=== PATIENT | male | born 1960 | race American Indian/Alaskan Native ===

== ENCOUNTER 2019-08-11 17:11 | Emergency (ER) | payer OTHER, MEDICAID ==
--- NOTE | 2019-08-11 20:18 | XRay Report ---
LEFT SHOULDER 3 VIEWS INDICATION / CLINICAL INFORMATION: LEFT SHOULDER PAIN COMPARISON: None available. FINDINGS: BONES / JOINT(S): No acute fracture or subluxation. No significant arthritis. SOFT TISSUES: No significant abnormality. ADDITIONAL FINDINGS: None. Signer Name: Herman Olivas MD Signed: 08/11/2019 8:14 PM Workstation Name: [id number]
--- NOTE | 2019-08-11 20:20 | XRay Report ---
Chest with left RIBS 4 views. HISTORY: Upper left chest pain. FINDINGS: Heart size is normal. The lungs are clear. Negative for pleural fluid, pneumothorax or alli a. No bony injury. Signer Name: Herman Olivas MD Signed: 08/11/2019 8:16 PM Workstation Name: [id number]
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
[2019-08-11 20:47] VITALS: BP 129/91
== END 2019-08-11 20:50 | disposition home or self-care (01) ==
LOC: ED 17:11
DX: S39.012A Strain of muscle, fascia and tendon of lower back, initial encounter (principal); S46.812A Strain of other muscles, fascia and tendons at shoulder and upper arm level, left arm, initial encounter; R07.89 Other chest pain; F17.200 Nicotine dependence, unspecified, uncomplicated; V87.7XXA Person injured in collision between other specified motor vehicles (traffic), initial encounter; Y93.89 Activity, other specified; Y92.89 Other specified places as the place of occurrence of the external cause; Y99.8 Other external cause status
CPT/HCPCS: 99283

== ENCOUNTER 2020-11-30 19:43 | Emergency (ER) | payer MEDICAID ==
[2020-11-30] MEDS ORDERED: ACETAMINOPHEN 325 MG TAB PO ONE (20:34)
[2020-11-30 20:36] VITALS: BP 112/65
--- NOTE | 2020-11-30 20:36 | Emergency Department Report ---
ED Fall HPI - General Chief Complaint: Pain General Stated Complaint: FALL/BACK/LEFT SIDE PAIN Time Seen by Provider: 11/30/20 20:21 Source: patient Mode of arrival: Ambulatory - History of Present Illness Initial Comments: 60-year-old male presents to the ER today with complaints of left flank pain after falling off a ladder 2 days ago. Patient states that the top of a 12 foot ladder. He states that the leg of the ladder slipped causing him in the long to fall. He states that he landed in bushes on his left side. He denies any head injury. He reports pain mainly to his left flank area. He reports that pain is worse with movement and on palpation. He reports no apparent bruising, swelling or open wounds. He denies any neck pain. He denies any hematuria. He denies any lumbar or thoracic back pain. He denies any bowel or bladder incontinence, lower extremity weakness, numbness, tingling, saddle anesthesia or any other symptoms at this time. Complaint: fall, other (Left flank pain) -: days(s) (1) Fall From: from height (distance) (Patient states that he was about 12 feet up on a ladder) - Related Data Previous Rx's Medication Instructions Recorded Last Taken Type Naproxen [EC-Naproxen] 500 mg PO BID PRN #14 tablet. 08/11/19 Unknown Rx methOCARBAMOL [Robaxin TAB] 500 mg PO QHS PRN #10 tab 08/11/19 Unknown Rx Allergies Allergy/AdvReac Type Severity Reaction Status Date / Time No Known Allergies Allergy Verified 08/11/19 17:12 ED Review of Systems ROS: Stated complaint: FALL/BACK/LEFT SIDE PAIN Other details as noted in HPI Comment: All other systems reviewed and negative Constitutional: denies: chills, diaphoresis, fever, malaise, weakness Eyes: denies: eye pain, eye discharge, vision change ENT: denies: ear pain, throat pain Respiratory: denies: cough, shortness of breath, wheezing Cardiovascular: denies: chest pain, palpitations Gastrointestinal: other (Left flank pain). denies: abdominal pain, nausea, vomiting, diarrhea, constipation, hematemesis, melena, hematochezia Genitourinary: denies: urgency, dysuria, frequency, hematuria, discharge, testicular pain, testicular mass Musculoskeletal: denies: back pain, joint swelling, arthralgia, myalgia Skin: denies: rash, lesions, change in color, change in hair/nails, pruritus Neurological: denies: headache, weakness, numbness, paresthesias, confusion, abnormal gait, vertigo Psychiatric: denies: anxiety, depression, auditory hallucinations, visual hallucinations, homicidal thoughts, suicidal thoughts Hematological/Lymphatic: denies: easy bleeding, easy bruising, swollen glands ED Past Medical Hx - Past Medical History Previous Medical History?: No - Surgical History Past Surgical History?: No - Social History Smoking Status: Current Every Day Smoker - Medications Home Medications: Home Medications Medication Instructions Recorded Confirmed Last Taken Type Naproxen [EC-Naproxen] 500 mg PO BID PRN #14 tablet.dr 08/11/19 Unknown Rx methOCARBAMOL [Robaxin TAB] 500 mg PO QHS PRN #10 tab 08/11/19 Unknown Rx ED Physical Exam - General Limitations: No Limitations General appearance: alert, in no apparent distress - Head Head exam: Present: atraumatic, normocephalic, normal inspection - Eye Eye exam: Present: normal appearance, PERRL, EOMI Pupils: Present: normal accommodation - Neck Neck exam: Present: normal inspection, full ROM. Absent: meningismus - Respiratory Respiratory exam: Present: normal lung sounds bilaterally. Absent: respiratory distress, wheezes, rales, rhonchi, stridor - Cardiovascular Cardiovascular Exam: Present: regular rate, normal rhythm, normal heart sounds - GI/Abdominal GI/Abdominal exam: Present: soft. Absent: distended, tenderness, guarding, rebound - Back Exam Back exam: Present: normal inspection (TTP muscle/soft tissue in left flank area. Very mild ttp distal lateral left ribs; No ttp left iliac crest; No bruising, swelling, abrasion or deformity noted. ), full ROM, other (TTP left lower lateral ). Absent: paraspinal tenderness, vertebral tenderness - Neurological Exam Neurological exam: Present: alert, oriented X3, CN II-XII intact, normal gait - Psychiatric Psychiatric exam: Present: normal affect, normal mood - Skin Skin exam: Present: intact ED Course Vital Signs 11/30/20 11/30/20 20:09 20:52 Temperature 98.4 F Pulse Rate 89 Respiratory 16 18 Rate Blood Pressure 112/65 O2 Sat by Pulse 97 Oximetry ED Medical Decision Making - Lab Data Result diagrams: 11/30/20 20:37 11/30/20 20:37 - Medical Decision Making 60-year-old male presents to the ER today with complaints of left flank pain after falling off a ladder 2 days ago. Patient states that the top of a 12 foot ladder. He states that the leg of the ladder slipped causing him in the long to fall. He states that he landed in bushes on his left side. He denies any head injury. He reports pain mainly to his left flank area. He reports that pain is worse with movement and on palpation. He reports no apparent bruising, swelling or open wounds. He denies any neck pain. He denies any hematuria. He denies any lumbar or thoracic back pain. He denies any bowel or bladder incontinence, lower extremity weakness, numbness, tingling, saddle anesthesia or any other symptoms at this time. 2110: Patient refusing IV for CT abdomen and pelvis. I explained to patient that given his mechanism of injury and location of his pain, it is important that we do CT to rule out splenic, renal or other solid organ injury or significant musculoskeletal injury the patient refused. Patient states that he does not want the CT and is refusing IV. Explained patient that he will have to sign out AGAINST MEDICAL ADVICE since he is refusing. Patient agreed to sign AMA which he did. AMA note: [Barney Matthews ] Has decided to leave our facility AGAINST MEDICAL ADVICE. I herrera ve assessed the patient's ability to make informed decision and it is my opinion at this time that the patient has the medical decision capacity to comprehend information regarding current medical condition and appreciates the impact of the disease or condition and the consequences of various options for treatment including foregoing treatment. The patient possesses the ability to evaluate all treatment options, compared to risk and benefits of each option, communicate choice in a consistent manner over time and is able to make rational choices. I have explained to the patient further testing, treatment and evaluation I would like to perform during the current emergency department visit as well as any possible alternatives that could be accomplished in a timely manner. I have outlined the possible risk of foregoing any or all of these interventions and the patient understands and acknowledges that the decision to leave may result in undesirable consequences such as , permanent disability and/or loss of current lifestyle. Even though leaving AMA is not ideal, I have instructed the patient to follow any discharge instructions given take any medications prescribed and resume care as soon as possible with another provider. Additionally, we clearly stated that the patient is welcome to return at any time to continue at our facility. Critical care attestation.: If time is entered above; I have spent that time in minutes in the direct care of this critically ill patient, excluding procedure time. ED Disposition Clinical Impression: Left flank pain, Fall from ladder, Contusion of rib on left side Disposition: DC LEFT AGAINST MED ADVICE Is pt being admited?: No Does the pt Need Aspirin: No Condition: Stable Referrals: PRIMARY CARE, [Primary Care Provider] - 3-5 Days
[2020-11-30 21:00] LABS: Mean Corpuscular HGB Conc 36 % (32-34); Mean Corpuscular Volume 94 fl (84-94); Platelet Count 222 K/mm3 (140-440); Red Blood Count 4.07 M/mm3 (3.65-5.03); Red Cell Distribution Width 13.2 % (13.2-15.2)
[2020-11-30 21:11] LABS: Hemoglobin 13.8 gm/dl (11.8-15.2)
[2020-11-30 21:13] LABS: Alanine Aminotransferase 21 units/L (7-56); Albumin 4.6 g/dL (3.9-5); BUN/Creatinine Ratio 11; Blood Urea Nitrogen 13 mg/dL (9-20); Calcium 8.6 mg/dL (8.4-10.2); Hemolysis Index 7
[2020-11-30 23:12] LABS: Anisocytosis 1+; Band Neutrophils # (Manual) 0.2 K/mm3; Platelet Estimate Consistent w Auto; Total Cells Counted 100
== END 2020-11-30 21:11 | disposition left against medical advice (07) ==
LOC: ED 19:43
DX: S20.212A Contusion of left front wall of thorax, initial encounter (principal); F17.200 Nicotine dependence, unspecified, uncomplicated; Z79.899 Other long term (current) drug therapy; W11.XXXA Fall on and from ladder, initial encounter; Y93.89 Activity, other specified; Y92.89 Other specified places as the place of occurrence of the external cause; Y99.8 Other external cause status
CPT/HCPCS: 36415; 80053; 83690; 85007; 85025; 99283

== ENCOUNTER 2021-01-30 17:41 | Emergency (ER) | payer MEDICAID ==
[2021-01-30 18:03] VITALS: BP 116/72
== END 2021-01-31 02:00 | disposition left against medical advice (07) ==
LOC: ED 17:41
DX: U07.1 COVID-19 (principal); Z53.21 Procedure and treatment not carried out due to patient leaving prior to being seen by health care provider